=== PATIENT | male | born 1950 | race Caucasian/White ===

== ENCOUNTER → 2016-12-27 | Outpatient (CLI) | payer MEDICARE, OTHER ==
--- NOTE | 2016-12-27 20:10 | PN ---
This patient has obstructive sleep apnea, moderately severe, currently on a CPAP pressure of 9 cm of water. He is coming in for his yearly check. He is doing well. He would like to get an alternative nasal pillow for comfort reasons. His treatment has been successful. He is averaging around 7.2 hours of CPAP use per night. CPAP use for more than 4 hours in 27 out of 30. His AHI is down to 1.7. Leak factor is only 13 L/minute. He is known to have CAD, viral cardiomyopathy, hyperlipidemia, BPH and chronic neck pain. He is also known to have environmental allergies. He is still benefiting from CPAP treatment. He is sleeping an adequate number of hours. No major hypersomnia and sleepiness during the day. Lake score is 8. BP is 98/69, pulse 63, respiration 16, temperature 97.8, saturation 97% on room air. Weight is 148 and height is 64 inches. Lake score is 8. BMI is 25.1. GENERAL APPEARANCE: Calm, comfortable. HEENT: Crowding of posterior pharynx. No goiter or neck mass. LUNGS: Clear to auscultation. HEART: Sounds are regular rate and rhythm. Normal S1, S2. No S3. S4. No murmurs. ABDOMEN: Soft, nontender. No organomegaly. EXTREMITIES: No edema. No cyanosis or clubbing. IMPRESSION: 1. Obstructive sleep apnea, moderately severe, currently on a CPAP pressure of 9 cm of water. Based apnea-hypopnea index is 21. 2. Coronary artery disease. 3. History of viral cardiomyopathy. 4. Hyperlipidemia. 5. Benign prostatic hypertrophy. 6. Neck pain. 7. Nasal fracture. 8. Environmental allergies. PLAN: 1. Continue CPAP therapy at the same level of pressure. 2. Provide the patient AirFit P10 medium-sized nasal pillows. 3. Encourage implementing good sleep hygiene measures. 4. Treatment has been successful. We will continue to follow and make further recommendations based on his progress.
== END | disposition home or self-care (01) ==
LOC: SLEEP 13:45
PROVIDERS: ATTEND Internal Medicine Critical Care Medicine
DX: G47.33 Obstructive sleep apnea (adult) (pediatric) (principal)

== ENCOUNTER → 2017-06-19 | Outpatient (CLI) | payer MEDICARE, OTHER ==
--- NOTE | 2017-06-19 23:07 | MR ---
EXAMINATION TYPE: MR lumbar spine wo con DATE OF EXAM: 06/19/2017 COMPARISON: NONE HISTORY: LBP, rt hip pain TECHNIQUE: Multiplanar, multisequence images of the lumbar spine were acquired. Lumbar vertebra have normal alignment. Disc spaces are fairly well-maintained for the patient's age. There is no compression fracture. There is patchy mixed signal in the lumbar vertebral bodies consist ent with variable fatty marrow replacement. The lumbar nerve roots appear normal. There is no spinal stenosis. The neural foramina are fairly well-maintained. There is no paraspinal mass. I see no focal bone destruction. Sacroiliac joints are intact. IMPRESSION: Lumbar spine appears normal for age. No evidence of lumbar disc herniation or spinal stenosis. No fra cture.
== END | disposition home or self-care (01) ==
LOC: RADMRIMAIN 19:54
PROVIDERS: ATTEND Pain Medicine Interventional Pain Medicine
DX: M54.31 Sciatica, right side (principal); M51.26 Other intervertebral disc displacement, lumbar region
CPT/HCPCS: 72148

== ENCOUNTER 2018-04-17 08:25 | Day surgery (SDC) | payer MEDICARE, OTHER ==
[2018-04-09 09:41] VITALS: BMI 24.2
[~2018-04-17 08:25] MED LIST: DEXAMETHASONE SOD PHOSPHATE 10 MG/ML 1 ML VIAL IV ONE; HEPARIN SODIUM,PORCINE 5,000 UNIT/ML 1 ML VIAL SQ ONE; LACTATED RINGERS 1,000 ML IV SCH; LIDOCAINE 1% 20 ML VIAL (10MG/ML) FOR IV START INTRADERMA PRN; MIDAZOLAM 2 MG/2 ML VIAL IV PRN; ONDANSETRON 4 MG/2 ML VIAL IVP ONE; ceFAZolin IN SWFI 2 GM/20 ML SYRINGE IVP ONE; fentaNYL (PF) 50 MCG/ML 2 ML AMP IV PRN
[2018-04-17 08:56] LABS: Glucose,Whole Blood 112 mg/dL (75-99)
--- NOTE | 2018-04-17 09:35 | P.GSHP ---
History of Present Illness H&P Date: 04/17/18 Chief Complaint: Left inguinal hernia This is a 67-year-old male referred from Dr. Crain. Patient does today for laparoscopic robotic-assisted repair of left inguinal hernia. Patient was seen [facility] found have a left we will hernia. Patient's complaints of some right groin pain. He's had a previous right groin hernia. Past Medical History Past Medical History: GERD/Reflux, Hyperlipidemia, Hypertension, Myocardial Infarction ([place]), Prostate Disorder, Sleep Apnea/CPAP/BIPAP Additional Past Medical History / Comment(s): gout, seasonal allergies, has cpap , occasional irregular heart rate, hx cardiomyopathy, hypoglycemia Last Myocardial Infarction Date:: 2002 History of Any Multi-Drug Resistant Organisms: None Reported Past Surgical History: Heart Catheterization With Stent, Hernia Repair, Orthopedic Surgery Additional Past Surgical History / Comment(s): heart cath with 2 stents 2002, rt shoulder x2, lt shoulder x1, rt knee x3 meniscus,tendon, cartilage, lt knee surgery x1, greg catatact surgery with lens implants Past Anesthesia/Blood Transfusion Reactions: No Reported Reaction Date of Last Stent Placement:: 2002 Smoking Status: Former smoker - Past Family History Mother Family Medical History: No Reported History Medications and Allergies Home Medications Medication Instructions Recorded Confirmed Type ALPRAZolam [Xanax] 0.5 mg PO TID PRN 12/19/15 04/17/18 History Atorvastatin Calcium [Lipitor] 20 mg PO DAILY 12/19/15 04/17/18 History Cetirizine HCl [Zyrtec] 10 mg PO DAILY 12/19/15 04/17/18 History Citalopram Hydrobromide [CeleXA] 40 mg PO DAILY 12/19/15 04/17/18 History Finasteride [Proscar] 5 mg PO DAILY 12/19/15 04/17/18 History Indomethacin [Indocin] 50 mg PO TID PRN 12/19/15 04/17/18 History Metoprolol Tartrate [Lopressor] 50 mg PO BID 12/19/15 04/17/18 History Multivitamin [Men's Multi-Vitamin] 1 each PO DAILY 12/19/15 04/17/18 History Nitroglycerin Sl Tabs [Nitrostat] 0.4 mg SUBLINGUAL Q5M PRN 12/19/15 04/17/18 History [place]-3 Fatty Acids/Fish Oil [Fish 1 each PO BID 12/19/15 04/17/18 History Oil 1,000 mg Softgel] Pantoprazole Sodium [Protonix] 40 mg PO DAILY 12/19/15 04/17/18 History Polyethylene Glycol 3350 [Miralax] 17 gm PO BID 12/19/15 04/17/18 History Terazosin HCl [Hytrin] 10 mg PO HS 12/19/15 04/17/18 History Vitamin B Complex 1 each PO DAILY 12/19/15 04/17/18 History Ascorbic Acid [Vitamin C] 1,000 mg PO DAILY 04/09/18 04/17/18 History Aspirin EC [Ecotrin] 325 mg PO DAILY 04/09/18 04/17/18 History Cholecalciferol [Vitamin D3] 400 unit PO DAILY 04/09/18 04/17/18 History Ibuprofen [Motrin] 400 mg PO Q6HR PRN 04/09/18 04/17/18 History Vitamin E (Dl,Tocopheryl Acet) 400 unit PO DAILY 04/09/18 04/17/18 History [Vitamin E] Allergies Allergy/AdvReac Type Severity Reaction Status Date / Time No Known Allergies Allergy Verified 04/17/18 08:44 Surgical - Exam Vital Signs Temp Pulse Resp BP Pulse Ox 98.4 F 68 16 102/59 96 04/17/18 09:02 04/17/18 09:02 04/17/18 09:02 04/17/18 09:02 04/17/18 09:02 - General well developed, no distress - Eyes PERRL - ENT normal pinna - Neck no masses - Respiratory normal expansion - Cardiovascular Rhythm: regular - Abdomen Abdomen: soft, non tender Hernia: inguinal (Left inguinal hernia) Results - Labs Abnormal Lab Results - Last 24 Hours (Table) 04/17/18 Range/Units 08:52 POC Glucose (mg/dL) 112 H (75-99) mg/dL Assessment and Plan Assessment: Left inguinal hernia. We'll perform laparoscopic robotic-assisted repair.
--- NOTE | 2018-04-17 09:44 | P.ONQ ---
Anesthesiology Proc Note - PNB - Peripheral Nerve Block Performed Bilateral Transversus Abdominis Single Procedure Start Time: :10 Procedure Stop Time: :20 Indication: Acute Post-Operative Pain, Requested by physician Sedation Type: Sedate with meaningful contact maintained Preparation: Sterile Prep Position: Supine Needle Size: 50mm (2") Needle Gauge: 21 Injectate: 0.5% Ropivacaine (see comment for volume) (Bilateral infiltration with 15ml 0.5 % Ropivicaine) Blood Aspirated: No Pain Paresthesia on Injection Noted: No Resistance on Injection: Normal Events: Uneventful and Well Tolerated
[2018-04-17] MEDS ORDERED: PROPOFOL 10 MG/ML 20 ML VIAL IV ONE (09:57)
[2018-04-17] MEDS ORDERED: fentaNYL (PF) 50 MCG/ML 2 ML AMP ONE (09:57)
[2018-04-17] MEDS ORDERED: ROCURONIUM BROMIDE 10 MG/ML 10 ML VIAL IV ONE (09:57)
[2018-04-17] MEDS ORDERED: MIDAZOLAM 2 MG/2 ML VIAL ONE (09:57)
[2018-04-17] MEDS ORDERED: NEOSTIGMINE 1 MG/ML 10 ML VIAL ONE (09:57)
[2018-04-17] MEDS ORDERED: GLYCOPYRROLATE 0.2 MG/ML 2 ML VIAL ONE (09:57)
[2018-04-17] MEDS ORDERED: SUCCINYLCHOLINE CHLORIDE 100 MG/5 ML SYR IV ONE (09:57)
[2018-04-17] MEDS ORDERED: ROPIVACAINE 5 MG/ML 30 ML VIAL ONE (09:57)
[2018-04-17] MEDS ORDERED: LIDOCAINE 1% INJ 10MG/ML (20 ML MDV) ONE (09:57)
[2018-04-17] MEDS ORDERED: BUPIVACAIN-EPI 0.5%-1:200,000 30 ML VIAL SQ ONE (10:20)
[2018-04-17 11:36] VITALS: TEMP 97.8
[2018-04-17] MEDS ORDERED: KETOROLAC 30 MG/ML 1 ML VIAL IVP ONE (11:41)
[2018-04-17] MEDS ORDERED: LACTATED RINGERS 1,000 ML IV ONE (11:53)
[2018-04-17 12:02] VITALS: RESP 16
--- NOTE | 2018-04-17 12:22 | P.OP ---
Date of Procedure: 04/17/18 Preoperative Diagnosis: Left inguinal hernia Postoperative Diagnosis: Left inguinal hernia Adhesions Procedure(s) Performed: Laparoscopic robotic system repair of left inguinal hernia Adhesions Anesthesia: GABBY Surgeon: Quintin Desai Estimated Blood Loss (ml): 5 Pathology: none sent Condition: stable Disposition: PACU Description of Procedure: MThe patient's placed on the operating table in the supine position. The patient received general anesthesia. The patient's abdomen was prepped and draped in usual sterile fashion. The skin was anesthetized 1% local Xylocaine at the incision sites. Using an 11 blade a skin incision was made at the umbilicus. The fascia was grasped with a [place] and then the peritoneal cavity was entered with the Veress needle. Position of the Veress needle was confirmed with a positive drop test. After adequate insufflation a 5 mm trocar was placed into the peritoneal cavity. The Laparoscope was placed the peritoneal cavity. And a robotic 8 mm trocar was placed in the right lateral position and then another 8 mm robotic trochars placed in the left lateral position. The original 5 mm trocar was exchanged for a 12 mm trocar. The patient was placed in reverse Trendelenburg and then the patient was docked to the robot. Next the peritoneum over top of the left hernia was incised and then using blunt and sharp dissection and electrocautery the hernia sac was dissected free from the floor of the inguinal canal. The hernia sac was completely reduced into the peritoneal cavity. And then using the Pro hoeing row boss mesh the hernia was repaired. The peritoneum was then sutured with 20V lock suture. Next the right inguinal areas examined. There is evidence of. Repair. Mesh could be seen in the peritoneum. There were adhesions to the mesh. These were lysed using sharp dissection. There is no evidence of a recurrent hernia. The patient was then undocked the robot. The needle was withdrawn from the peritoneal cavity. The umbilical trocar site was closed with 0 Ethibond suture. The skin was closed interrupted 3-0 Monocryl suture. Dermabond dressing was applied. Patient was sent to recovery in stable condition.
[2018-04-17] MEDS ORDERED: HYDROcodone/APAP 7.5-325MG 1 EACH TAB PO ONE (12:33)
[2018-04-17 12:36] VITALS: BP 113/71; PULSE 57
== END 2018-04-17 13:53 | disposition home or self-care (01) ==
LOC: OR 08:25
PROVIDERS: ATTEND Surgery
DX: K40.90 Unilateral inguinal hernia, without obstruction or gangrene, not specified as recurrent (principal); K21.9 Gastro-esophageal reflux disease without esophagitis; E78.5 Hyperlipidemia, unspecified; I25.2 Old myocardial infarction; N40.0 Benign prostatic hyperplasia without lower urinary tract symptoms; G47.30 Sleep apnea, unspecified; Z99.89 Dependence on other enabling machines and devices; I42.9 Cardiomyopathy, unspecified; Z95.5 Presence of coronary angioplasty implant and graft; Z87.891 Personal history of nicotine dependence; F32.9 Major depressive disorder, single episode, unspecified; F41.9 Anxiety disorder, unspecified; Z79.82 Long term (current) use of aspirin; Z79.899 Other long term (current) drug therapy
CPT/HCPCS: 49650; 64488; C1781; J2250; J1644; J1100; J2710; J2405; J2001; J3010; J1885; J2795; J0330; J2704; J0690

== ENCOUNTER → 2018-05-29 | Outpatient (CLI) | payer MEDICARE, OTHER ==
--- NOTE | 2018-05-29 16:22 | PN ---
PROGRESS NOTE This is a pleasant 67-year-old male patient coming in for followup regarding his CARYN. This is his annual check. This patient was diagnosed having obstructive sleep apnea. He is currently on CPAP at a pressure of 9 cm of water. Recently he has undergone left inguinal hernia repair and cataract surgery. Despite all these surgical procedures, he has been very compliant with his CPAP unit. Compliance over the past 30 days shows an average CPAP use of 6.9 hours per night. His CPAP use for more than 4 hours is 100%. Leak factor is 31 L/minute. His AHI while on treatment is down to 1.4. He is using AirFit P10 nose pillows. No aerophagia. No belching. No flatus. No nocturnal heartburn or chest pain or shortness of breath. He wakes up refreshed and alert during the day. No hypersomnia or sleepiness at all, and his [place] score is 5. 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 No other medical issues otherwise over the past one year. REVIEW OF SYSTEMS: Twelve-point review of systems was done. Positive findings were all mentioned above in the history of present illness. No weight loss or weight gain. No angina. No palpitations. No shortness of breath. No cough or sputum production. No nausea, vomiting. No altered mentation. No anxiety. No depression. No swelling in lower extremities. No open wounds or sores or ulceration. PHYSICAL EXAMINATION: BP is 115/71, pulse 66, respiration 16, temperature 97.2, saturation 98% on room air. Height 5 feet 4 inches, weight 150, neck size 15-2/3 inches. E[place] score is 5 and BMI is 25.3. GENERAL APPEARANCE: Calm comfortable. Head is atraumatic, normocephalic. NECK: Supple. There is no JVD. No goiter or neck masses. Mallampati class IV. LUNGS: Clear to auscultation. HEART: Heart sounds are regular rate and rhythm. Normal S1, S2. No S3, S4. No murmurs. ABDOMEN: Soft, nontender. No organomegaly. EXTREMITIES: No edema. No cyanosis or clubbing. NEUROLOGIC: Alert and oriented x3. No focal neurological deficit. IMPRESSION: 1. Obstructive sleep apnea. The patient continues to receive successful CPAP therapy at a pressure of 9 cm of water. He continues to benefit and the compliancy data shows satisfactory use. 2. Hypersomnia, recovered. E[place]ka score is down to 5. 3. Recent hernia surgery. 4. Recent cataract surgery. 5. Stable weight. PLAN: 1. Continue CPAP at the same level of pressure. 2. Refills for his supplies were given. 3. No need for any pressure adjustments. 4. See me back in a year's time, earlier if needed. MMODL / IJN: [id number] /
== END | disposition home or self-care (01) ==
LOC: SLEEP 15:11
PROVIDERS: ATTEND Internal Medicine Critical Care Medicine
DX: G47.33 Obstructive sleep apnea (adult) (pediatric) (principal); Z99.89 Dependence on other enabling machines and devices; Z98.890 Other specified postprocedural states; Z98.49 Cataract extraction status, unspecified eye

== ENCOUNTER → 2019-05-28 | Outpatient (CLI) | payer MEDICARE, OTHER ==
--- NOTE | 2019-05-28 16:38 | PN ---
PROGRESS NOTE This 68-year-old male patient coming in for annual check regarding obstructive sleep apnea. The patient is doing well. He has an AHI of 21, currently on CPAP pressure of 9 cm of water. He is using AirFit P10 nose pillow. His average is around 7 hours of CPAP use per night and his AHI is down to 0.5. CPAP use for more than 4 hours is above 80%. He has no new complaints. He is seeking the same mask to be renewed. He is using a heated tubing. His temperature of tubing set at 66 degrees and humidity level is at 4. Blood pressure is under good control. No nocturnal chest pain. No shortness of breath. Heart burn. No altered mentation during the day. The patient is successfully treated. 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 He does not fall asleep during day-to-day activities and his current [place]bridge score is down to 4. REVIEW OF SYSTEMS: Fourteen-point review of system was done. Positive findings are mentioned above history of present illness. No recent weight gain or weight loss. Treatment remains extremely successful. No snoring. No restlessness in lower extremities. No leg edema. No altered mentation. No falls. No anxiety or depression. PHYSICAL EXAMINATION: VITAL SIGNS: BP is 103/64, pulse is 64, respirations 16, temperature 98.0. Saturation 96% on room air. Weight is 152 and BMI 26. GENERAL: Calm, comfortable. Head is atraumatic, normocephalic. NECK: Supple. No JVD. No goiter or neck masses. LUNGS: Clear to auscultation. HEART: Heart sounds are regular rate and rhythm. Normal S1, S2. No S3. No murmurs. ABDOMEN: Soft, nontender. No organomegaly. EXTREMITIES: No edema. No cyanosis or clubbing. NEUROLOGIC: She is awake, alert, and there are no focal neurological deficits. PSYCHIATRIC: Negative for anxiety or depression. IMPRESSION: 1. Obstructive sleep apnea moderate in severity. AHI of 21, still on CPAP pressure of 9 cm of water. 2. Hypersomnia, recovered. PLAN: 1. Continue CPAP at same level of pressure which is 9 cm. 2. Refill AirFit P10 medium-size nose pillows. 3. Keep the humidity at 4. 4. Drop the temperature of the tubing upon his request to 6 degrees Fahrenheit. 5. Encourage maintaining good sleep hygiene measures. Northbridge score is 7. His treatment is successful. He will see me back in a year's time, earlier if needed. Refills on his equipment and supplies were given. MMRAHELL / IJN: [id number] /
== END ==
LOC: SLEEP 14:37
PROVIDERS: ATTEND Internal Medicine Critical Care Medicine
DX: G47.33 Obstructive sleep apnea (adult) (pediatric) (principal); Z99.89 Dependence on other enabling machines and devices

== ENCOUNTER → 2020-05-09 | Outpatient (CLI) | payer MEDICARE, OTHER ==
--- NOTE | 2020-05-10 01:18 | MR ---
EXAMINATION TYPE: MR lumbar spine wo con DATE OF EXAM: 05/09/2020 COMPARISON: 01/31/2017 HISTORY: Low back pain into rt leg CONTRAST: 0 mL intravenous Gadavist. TECHNIQUE: Multiplanar, multisequence images of the lumbar spine were acquired. FINDINGS: Cord terminates at the L1 level. Diffuse heterogeneity within the vertebral bodies similar to prior exam likely related to red marrow conversion. Disc heights are preserved. Vertebral body he ights are preserved. Diffuse disc desiccation is present throughout the lumbar spine is stable from c omparison. L5-S1: Minimal disc bulging is anterior thecal sac contact. No spinal canal stenosis. No foraminal stenosis. Facets are normal. L4-L5: Minimal disc bulging is anterior thecal sac contact. No spinal canal stenosis. No foraminal stenosis. Mild facet hypertrophy and ligamentum flavum laxity has posterior lateral thecal sac conta ct. No stenosis is evident.. L3-L4: No significant disc bulge or disc herniation. No spinal canal stenosis. No foraminal stenosi s. L2-L3: No significant disc bulge or disc herniation. No spinal canal stenosis. No foraminal stenosi s. L1-L2: No significant disc bulge or disc herniation. No spinal canal stenosis. No foraminal stenosi s. T12-L1: No significant disc bulge or disc herniation. No spinal canal stenosis. No foraminal stenos is. IMPRESSION: 1. Minimal disc bulging with anterior thecal sac contact, No stenosis is present L4-5 L5-S1. 2. Minimal facet hypertrophy L4-5. 3. No significant interval change
== END | disposition home or self-care (01) ==
LOC: RADMRIMAIN 11:50
PROVIDERS: ATTEND Neuromusculoskeletal Medicine & OMM
DX: M51.86 Other intervertebral disc disorders, lumbar region (principal); M54.16 Radiculopathy, lumbar region
CPT/HCPCS: 72148

== ENCOUNTER 2020-07-07 05:56 | Day surgery (SDC) | payer MEDICARE, OTHER ==
[2020-07-02 12:00] VITALS: BMI 25.9
[2020-07-07] MEDS ORDERED: NITROGLYCERIN SL TABS 0.4 MG TAB SUBLINGUAL PRN (06:04)
[2020-07-07] MEDS ORDERED: ALPRAZolam 0.25 MG TAB PO PRN (06:04)
[2020-07-07] MEDS ORDERED: SODIUM CHLORIDE 0.9% 1,000 ML in EMPTY BAG 1 BAG IV ONE (06:04)
[2020-07-07] MEDS ORDERED: ALPRAZolam 0.5 MG TAB PO PRN (06:04)
[2020-07-07] MEDS ORDERED: ASPIRIN 325 MG TAB PO STA (06:04)
[2020-07-07] MEDS ORDERED: SODIUM CHLORIDE 0.9% 1,000 ML IV ONE (06:13)
[2020-07-07 06:31] VITALS: RESP 16; TEMP 98.3
[2020-07-07] MEDS ORDERED: fentaNYL (PF) 50 MCG/ML 2 ML AMP ONE (07:03)
[2020-07-07] MEDS ORDERED: LIDOCAINE 1% INJ 10MG/ML (20 ML MDV) ONE (07:18)
[2020-07-07] MEDS ORDERED: BENZOCAINE SPRAY 1 CAN MUCOUS MEM ONE (07:20)
[2020-07-07] MEDS ORDERED: fentaNYL (PF) 50 MCG/ML 2 ML AMP IV ONE (07:20)
[2020-07-07] MEDS ORDERED: MIDAZOLAM 2 MG/2 ML VIAL IV ONE ×2 (07:20→07:56)
[2020-07-07] MEDS ORDERED: VERAPAMIL 2.5 MG/ML 2 ML AMP ONE (07:45)
[2020-07-07] MEDS ORDERED: IV FLUID CONTINUATION 1,000 ML IV ONE (07:45)
[2020-07-07] MEDS ORDERED: LIDOCAINE 1% INJ 10MG/ML (20 ML MDV) SQ ONE (07:56)
[2020-07-07] MEDS ORDERED: VERAPAMIL SYRINGE (5 MG/10 ML) INTRAARTER ONE (08:04)
[2020-07-07] MEDS ORDERED: HEPARIN SODIUM 1,000 UN/ML (10ML VL) IV ONE ×2 (08:20→08:25)
[2020-07-07 08:29] LABS: O2 Sat Blood Gas 68.8 %
[2020-07-07 08:33] LABS: O2 Sat Blood Gas 97.5 %
[2020-07-07] MEDS ORDERED: IOPAMIDOL-370 50ML BTL INJ ONE (08:36)
[2020-07-07] MEDS ORDERED: NITROGLYCERIN 1000MCG/10ML SYRINGE INTRACORON ONE ×2 (08:38→08:49)
[2020-07-07] MEDS ORDERED: ADENOSINE 90 MG in SODIUM CHLORIDE 0.9% 60 ML IVP ONE (08:52)
[2020-07-07] MEDS ORDERED: IOPAMIDOL-370 125ML BTL INJ ONE (08:53)
[2020-07-07] MEDS ORDERED: RX INFO: IV CONTRAST WAS GIVEN 1 EACH MISC MISCELLANE PRN (09:08)
[2020-07-07] MEDS ORDERED: SODIUM CHLORIDE 0.9% 1,000 ML IV SCH (09:15)
--- NOTE | 2020-07-07 09:18 | ECHOT ---
TRANSESOPHAGEAL ECHOCARDIOGRAM INDICATION: Evaluation of mitral valve. PROCEDURE: After explaining the procedure to the patient, its risks and complications, his blood pressure, heart rate, O2 saturation was monitored. The throat was sprayed with Cetacaine, he received 2 mg intravenous Versed, 50 mcg intravenous fentanyl. The probe was introduced in the esophagus without difficulties. Images were obtained. The probe was removed, there was no immediate complication. FINDINGS: Left atrial size is dilated. Left atrial appendage is normal. Left ventricular size is normal. The inferolateral wall is hypokinetic. The estimated ejection fraction 45%. The aortic valve revealed mild thickening of the mitral valve leaflets with preserved opening, mitral valve revealed mild thickening of the leaflets. The tricuspid valve is normal. Descending thoracic aorta appears to be normal. Contrast bubble study revealed no shunting across the interatrial septum. There was no pericardial effusion. Doppler pulse wave and color Doppler obtained and revealed a moderate central mitral regurgitation with mild to moderate aortic and mild tricuspid regurgitation. There was no shunting by color Doppler study. CONCLUSION: 1. Dilated left atrium. 2. Normal left ventricular size with mildly impaired left ventricular systolic function with segmental wall motion abnormality. 3. Moderate central mitral regurgitation with mild to moderate aortic and mild tricuspid regurgitation. 4. No shunting across the interatrial septum. 5. Normal appearance of the descending thoracic aorta. MMODL / IJN: [id number] /
--- NOTE | 2020-07-07 10:02 | CC ---
CARDIAC CATHETERIZATION REPORT Mr. Zarate is a 69-year-old male with known history of coronary artery disease, status post myocardial infarction and stenting of the left circumflex in 2002, who presented with symptoms of progressive dyspnea and evidence of mitral regurgitation. In view of that, recommendation made regarding cardiac catheterization. The procedures, risks, and complication were discussed with the patient who is in full understanding and agreement. PROCEDURE: Patient was brought to the slab installer in a fasting semi-sedated state after receiving fentanyl and Benadryl and achieving moderate conscious sedated state. Using Xylocaine anesthesia and Seldinger technique, a 6-Nepalese sheath was introduced in the right radial artery. Subsequently, using guidewire exchange, the intravenous catheter in the right basilic vein was exchanged to a 6-Nepalese sheath, right heart catheterization was performed using Beaman-Aspen catheter, multiple pressure and samples were obtained. Following that, selective right and left coronary angiography performed using 5-Nepalese, 3.5 bend, right and left Catina catheter, multiple views of the coronary artery including hemiaxial views obtained. Following that, a 5-Nepalese tight pigtail catheter introduced into the left ventricle and a 30-degree STEVENS view of the left ventricle was obtained. Following that, catheters were removed and a 6-Nepalese FL 3.5 guiding catheter was introduced in the system and after cannulating the left main, a Exhbito Verrata plus pressure guidewire was introduced in the left circumflex and IFR and FFR were measured after infusion of adenosine per protocol. Following that, catheter and sheath were removed. Hemostasis was obtained with deployment of a TR band. There was no immediate complication. Patient is returned to his room in stable condition. Of note, the patient received a total of 5500 units of intravenous heparin during the procedure intra-arterial verapamil. HEMODYNAMICS: Right atrial saturation 72% pulmonary saturation 69%. Radial artery saturation 97%. Cardiac output by Mariama 5.6 L/minute and by thermodilution 6.8 L/minute. Pulmonary artery systolic pressure of 24 with a diastolic of 12. Pulmonary capillary wedge pressure A-wave of 10, V-wave of 8 with a mean of 8 mmHg. Right ventricular systolic pressure of 24 with an end-diastolic of 3 mmHg. Right atrial A-wave of 2, V-wave of 2 with a mean of 2 mmHg. There was no gradient across the aortic valve. The left ventricular end-diastolic pressure was 20 mmHg. CORONARIES: Under fluoroscopy there was calcification involving the right coronary artery and the left anterior descending artery. LEFT MAIN: This is a short size vessel, bifurcating into left circumflex. Left main coronary artery has no evidence of high-grade stenosis. LEFT ANTERIOR DESCENDING ARTERY: This is a large-sized vessel, reaching toward the apex with a wraparound apex segment giving rise to 3 small diagonal branch. Left anterior descending artery has mild intimal disease of 20%-30%in the mid segment without any evidence of high-grade stenosis. LEFT CIRCUMFLEX: This is a nondominant vessel, giving rise to a large obtuse marginal branch. The stented segment is patent. Following the stent, there is an area of 50% to 60% eccentric lesion, the rest of the vessel has no high-grade stenosis. RIGHT CORONARY ARTERY: This is a dominant vessel, large in caliber, bifurcating distally into PDA and posterolateral segment and branches, calcified in the mid segment. The right coronary artery has mild intimal disease of 20% to 30% without any evidence of high-grade stenosis. LEFT VENTRICULOGRAM: Left ventriculogram was performed in 30 degree STEVENS view and revealed an inferoapical hypokinesis and 2+ mitral regurgitation. FRACTION FLOW RESERVE: Fraction flow reserve was 97% and IFR was 1.0. IMPRESSION: 1. Calcified coronary arteries. 2. Patent stent in the left circumflex with moderate lesion distal to the stent. 3. Normal IFR and FFR of the left circumflex. 4. Mildly to moderately impaired left ventricular systolic function with 2+ mitral regurgitation. RECOMMENDATION: In view of the finding and anatomy, I recommend continue medical therapy with aggressive risk modifications being initiated. Those findings and recommendation were discussed with the patient and his family and they are in full understanding and agreement. Duration of sedation is 59 minutes. MMODL / IJN: [id number] /
[2020-07-07 12:24] VITALS: BP 118/69; PULSE 66
[2020-07-07] MEDS ORDERED: lisinopriL 5 MG TAB PO SCH (21:00)
[2020-07-07] MEDS ORDERED: METOPROLOL TARTRATE 50 MG TAB PO SCH (21:00)
[2020-07-07] MEDS ORDERED: ASPIRIN 81 MG PO SCH (21:00)
[2020-07-07] MEDS ORDERED: ATORVASTATIN 40 MG TAB PO SCH (21:00)
== END 2020-07-07 12:57 | disposition home or self-care (01) ==
LOC: CATHCVL 05:56
PROVIDERS: ATTEND Internal Medicine Interventional Cardiology
DX: I25.10 Atherosclerotic heart disease of native coronary artery without angina pectoris (principal); I25.2 Old myocardial infarction; I08.3 Combined rheumatic disorders of mitral, aortic and tricuspid valves; I10 Essential (primary) hypertension; I25.5 Ischemic cardiomyopathy; E78.2 Mixed hyperlipidemia; G47.33 Obstructive sleep apnea (adult) (pediatric); I49.3 Ventricular premature depolarization; Z95.5 Presence of coronary angioplasty implant and graft; Z79.899 Other long term (current) drug therapy; Z79.02 Long term (current) use of antithrombotics/antiplatelets; Z79.82 Long term (current) use of aspirin; Z82.49 Family history of ischemic heart disease and other diseases of the circulatory system; M19.90 Unspecified osteoarthritis, unspecified site; Z98.49 Cataract extraction status, unspecified eye; Z87.891 Personal history of nicotine dependence
CPT/HCPCS: 93312; 93325; 93571; 93460; 85347; 85018; 82810; C1887; C1751; C1769; C1894; J2250; J2001; J3010; J1644; J0153; Q9967 ×2; 93453

== ENCOUNTER → 2020-07-14 | Outpatient (CLI) | payer MEDICARE, OTHER | END | disposition home or self-care (01) | LOC: LABWHC1 16:01 | PROVIDERS: ATTEND Family Medicine | DX: Z20.828 Contact with and (suspected) exposure to other viral communicable diseases (principal) | CPT/HCPCS: U0003; C9803 ==

== ENCOUNTER → 2021-06-03 | Outpatient (CLI) | payer MEDICARE, OTHER ==
--- NOTE | 2021-06-08 21:54 | SLS ---
SLEEP STUDY HOME SLEEP STUDY: DATE OF SERVICE: 06/04/2021. This is a 70-year-old patient with obstructive sleep apnea. The patient's AHI was 21, worse during REM sleep. The patient was being treated with a CPAP pressure of 11 cm of water. He was receiving successful treatment. His machine went bad and he contacted his DME and he was unable to obtain a new machine, and the machine could not be repaired. The DME dropped the pressure down to 7 cm of water. Even with that, the patient is having difficulties tolerating and his treatment is suboptimal at this point in time. A home sleep study was ordered, and following that the patient will be given a newer-generation ResMed AutoSet unit. PERTINENT PHYSICAL FINDINGS: Height is 5 feet 5 inches. Weight is 156, BMI 25.9. TECHNICAL DESCRIPTION: The ResMed ApneaLink was used to complete this type 3 home sleep study. The total recording duration was 9 hours and 57 minutes. Recording started at 9:51 p.m., ended at 7:48 a.m. The study was adequate, knowing that there was a total of 9 hours and 45 minutes of flow monitoring and had a total of 9 hours and 46 minutes of oxygen saturation monitoring. RESULTS: Respiratory count showed a total of 4 obstructive apneas, zero mixed apneas, zero central apneas, 98 obstructive hypopneas. AHI was 10.5. OXYGENATION ANALYSIS: The patient had a total of 93 oxygen desaturations where the pulse ox dropped by more than 4%. Minimum pulse ox was 82% and the patient spent approximately 8 minutes of sleep time at a pulse ox of 88% or below, accounting for around 1% of the overall sleep time. CARDIAC SUMMARY: Average heart rate was 69, minimum heart rate 51, maximum was 84. IMPRESSION: 1. Obstructive sleep apnea, mild. AHI of 10. 2. Congestive heart failure. 3. Coronary artery disease. 4. 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 Patient on Eliquis. 5. Hypertension. 6. Hyperlipidemia. 7. Benign prostatic hypertrophy. PLAN: 1. Order an APAP in for this patient at a pressure minimum of 5 and a maximum of 15 with appropriate mask interface. 2. See me back in the office in 30 to 90 days to assess clinical response and compliance, and further adjustments will be done on his treatment accordingly. Will monitor the compliance data and make further recommendations. MMODL / IJN: [id number] /
== END ==
LOC: SLEEP 16:17
PROVIDERS: ATTEND Internal Medicine Critical Care Medicine
DX: G47.33 Obstructive sleep apnea (adult) (pediatric) (principal); I50.9 Heart failure, unspecified; I25.10 Atherosclerotic heart disease of native coronary artery without angina pectoris; I10 Essential (primary) hypertension; E78.5 Hyperlipidemia, unspecified; N40.0 Benign prostatic hyperplasia without lower urinary tract symptoms; Z79.01 Long term (current) use of anticoagulants; Z99.89 Dependence on other enabling machines and devices; Z86.718 Personal history of other venous thrombosis and embolism; Z87.891 Personal history of nicotine dependence

== ENCOUNTER → 2022-06-15 | Outpatient (CLI) | payer MEDICARE, OTHER ==
--- NOTE | 2022-06-15 12:26 | XR ---
EXAMINATION TYPE: XR chest 2V DATE OF EXAM: 06/15/2022 COMPARISON: NONE HISTORY: Coughing and shortness of breath. TECHNIQUE: Frontal and lateral views of the chest are obtained. FINDINGS: Perhaps mild underlying emphysematous change present on the lateral view. Some eventration of the right hemidiaphragm. There is no suspicious focal air space opacity, pleural effusion, or pne umothorax seen. The cardiac silhouette size is within normal limits. The osseous structures are in tact. IMPRESSION: No acute process.
== END | disposition home or self-care (01) ==
LOC: RADXRMAIN 12:07
PROVIDERS: ATTEND Family Medicine
DX: R05.2 Subacute cough (principal); R06.02 Shortness of breath
CPT/HCPCS: 71046

== ENCOUNTER → 2023-06-15 | Day surgery (SDC) | payer MEDICARE ==
[2023-06-13 17:02] VITALS: BMI 25.7
[~2023-06-15] MED LIST changes: +ALPRAZolam 0.25 MG TAB PO PRN; +ALPRAZolam 0.5 MG TAB PO PRN; +ASPIRIN 325 MG TAB PO STA; +ATORVASTATIN 40 MG TAB PO SCH; +ATORVASTATIN 80 MG TAB PO STA; -DEXAMETHASONE SOD PHOSPHATE 10 MG/ML 1 ML VIAL IV ONE; +HEPARIN SODIUM 1,000 UN/ML (10ML VL) IV ONE; +HEPARIN SODIUM 1,000 UN/ML (10ML VL) ONE; +HEPARIN SODIUM,PORCINE (1 ML) 2,500 UNIT in SODIUM CHLORIDE 0.9% 250 ML IRRIGATION PRN; +HEPARIN SODIUM,PORCINE 10,000 UNIT in SODIUM CHLORIDE 0.9% 1,000 ML IRRIGATION PRN; -HEPARIN SODIUM,PORCINE 5,000 UNIT/ML 1 ML VIAL SQ ONE; +IOPAMIDOL-370 100ML BTL INJ ONE; +IV FLUID CONTINUATION 500 ML IV ONE; -LACTATED RINGERS 1,000 ML IV SCH; -LIDOCAINE 1% 20 ML VIAL (10MG/ML) FOR IV START INTRADERMA PRN; +LIDOCAINE 1% INJ 10MG/ML (20 ML MDV) SQ ONE; +METOPROLOL TARTRATE 50 MG TAB PO SCH; -MIDAZOLAM 2 MG/2 ML VIAL IV PRN; +MIDAZOLAM 2 MG/2 ML VIAL IVP ONE; +NITROGLYCERIN SL TABS 0.4 MG TAB SUBLINGUAL PRN; +NON FORMULARY DRUG (Aspirin [Adult Low Dose Aspirin Ec] 81 MG Tablet.Dr) PO SCH; -ONDANSETRON 4 MG/2 ML VIAL IVP ONE; +RX INFO: IV CONTRAST WAS GIVEN 1 EACH MISC MISCELLANE PRN; +SODIUM CHLORIDE 0.9% 1,000 ML IV ONE; +SODIUM CHLORIDE 0.9% 1,000 ML IV SCH; +TAMSULOSIN 0.4 MG CAP.ER.24H PO SCH; +VERAPAMIL SYRINGE (5 MG/10 ML) INTRAARTER ONE; -ceFAZolin IN SWFI 2 GM/20 ML SYRINGE IVP ONE; -fentaNYL (PF) 50 MCG/ML 2 ML AMP IV PRN; +fentaNYL (PF) 50 MCG/ML 2 ML AMP IVP ONE; +fentaNYL (PF) 50 MCG/ML 2 ML AMP ONE; +lisinopriL 5 MG TAB PO SCH
[2023-06-15 08:20] LABS: Basophils % (A) 0 %; Eosinophils # (A) 0.3 k/uL (0-0.7); Eosinophils % (A) 4 %; HCT 39.9 % (39.0-53.0); HGB 13.3 gm/dL (13.0-17.5); Lymphocytes # (A) 1.4 k/uL (1.0-4.8); Lymphocytes % (A) 21 %; MCH 30.4 pg (25.0-35.0); MCHC 33.4 g/dL (31.0-37.0); Mean Platelet Volume 9.6; Monocytes # (A) 0.5 k/uL (0-1.0); Monocytes % (A) 8 %; Neutrophils # (A) 4.2 k/uL (1.3-7.7); Neutrophils % (A) 64 %; Platelet Count 175 k/uL (150-450); RBC 4.39 m/uL (4.30-5.90); WBC 6.6 k/uL (3.8-10.6)
[2023-06-15 08:27] VITALS: RESP 16; TEMP 97.5
[2023-06-15 08:32] LABS: African American GFR (CKD) >90 (>60 ml/min/1.73 sqM); Anion Gap 10 mmol/L; Blood Urea Nitrogen 23 mg/dL (9-20); Calcium 9.2 mg/dL (8.4-10.2); Carbon Dioxide 24 mmol/L (22-30); Chloride 103 mmol/L (98-107); Glucose 116 mg/dL (74-99); Non-African American GFR(CKD) >90 (>60 ml/min/1.73 sqM); Potassium 3.9 mmol/L (3.5-5.1); Sodium 137 mmol/L (137-145)
[2023-06-15] MEDS: BENZOCAINE SPRAY 1 CAN TOPICAL ONE ×2 (10:06→10:20)
--- NOTE | 2023-06-15 10:39 | P.PCN ---
Date of Procedure: 06/15/23 Description of Procedure: Indication: Mitral regurgitation Procedure Description: After explaining the procedure to the patient, it's risk and complications, blood pressure, heart rate and O2 saturation were monitored. The throat was sprayed with Cetacaine. Patient received 2 mg intravenous Versed, 50 mcg intravenous fentanyl. The probe was introduced into the esophagus without difficulty. Images were obtained. Following that, the probe was removed. There was no immediate complication. Findings: Left atrial size is dilated, left atrial appendage is normal. The inferior and inferoseptal wall are hypokinetic, ejection fraction 40-45%. The mitral valve revealed mild thickening of the leaflets, aortic valve is tricuspid with mild calcification of the cusps. The tricuspid valve is normal. Descending thoracic aorta appears to be normal. No pericardial effusion was noted. Contrast bubble study revealed no shunting across the intra-atrial septum with Valsalva maneuver. Doppler: Pulse wave and color Doppler were obtained, and revealed severe multiple jets mitral regurgitation, [id number] tricuspid regurgitation and mild aortic regurgitation. There was no shunting by color Doppler study. Conclusion: 1. Dilated left atrium 2. Moderately impaired left ventricular systolic function with segmental wall motion abnormality 3. Severe mitral regurgitation 4. Mild tricuspid regurgitation with mild aortic regurgitation 5. No shunting across the intra-atrial septum
[2023-06-15 11:16] LABS: O2 Sat Blood Gas 98.6 %
[2023-06-15 11:18] LABS: O2 Sat Blood Gas 72.9 %
--- NOTE | 2023-06-15 11:38 | P.CARDCATH ---
Date of Procedure: 06/15/23 Description of Procedure: Cardiac Catheterization: The patient is a 72-year-old male with a known history of hypertension, hyperlipidemia, history of CAD and mitral regurgitation who has been complaining of progressive fatigue and dyspnea on exertion. Recommendations were made regarding cardiac catheterization, the risks and the complications were discussed with the patient who is in full understanding and agreement. Procedure Description: Patient was brought to photographic laboratory technician in fasting semi-sedated state after receiving Fentanyl and Benadryl achieiving moderate conscious sedated state. Using Xylocaine Anesthesia and modified Seldinger technique, a 6-Ethiopian sheath was introduced in the right radial artery . The venous access in the right basilic vein was exchanged for a 6-Ethiopian sheath. Right heart catheterization was performed with [place] catheter, multiple samples and pressures were obtain. Cardiac output by thermodilution was calculated. Subsequently, selective coronary angiography was performed using a 5-Ethiopian 3.5 bend Catina catheter. Multiple views of the coronary artery including hemiaxial views were obtained. The 6-Ethiopian pigtail catheter was used to cross the aortic valve and LVEDP was calculated. An STEVENS view of the left ventricle was performed. Following that, catheter and sheath were removed. Hemostasis was obtained with deployment of vascular band and compression on the right venous site. There was no immediate complication. Patient was returned to room in stable condition. Of note, the patient received a total of 3500 units of intravenous heparin as well as intra-arterial verapamil. Findings: Fluoroscopy: Calcifications of the coronary arteries were noted Left main: This is a large size vessel, bifurcating into LAD and left circumflex, left main has no obstructive disease. LAD: This is a large size vessel, giving rise to small diagonal branch. The proximal LAD has 10-20% plaque. The mid LAD at the 40% plaque, the rest of the vessel is no high-grade stenosis Left circumflex: Is a nondominant vessel giving rise to a large obtuse marginal branch. The stented segment in the obtuse marginal branch is patent, distal to the stent there is an eccentric 50% plaque no progression compared to 2020. RCA: This is a dominant vessel, large in caliber, bifurcating into PDA and PLV. The midright coronary artery has a 30% plaque. Left Ventriculogram: Performed in the STEVENS view and revealed inferior apical hypokinesis, ejection fraction is about 40% with 4+ mitral regurgitation Hemodynamics: Pulmonary artery saturation 72%, right atrium 73%, femoral artery 99%. Cardiac output by Mariama 6 L/m and by thermodilution 4.20 L/m. Pulmonary artery systolic pressure 34 with a diastolic of 15 and a mean of 20 mmHg, pulmonary capillary wedge pressure A wave 18 V-wave of 22 with a mean of mercury right ventricle systolic pressure 34 with end-diastolic 8 mmHg. Right atrium A wave of 7 V-wave of 8 with a mean 4 mmHg , LVEDP was 18-20 mmHg, there was no gradient across the aortic valve Conclusion: 1. Calcified coronary arteries 2. Mild to moderate triple-vessel disease with no progression compared to the images obtained in 2020 3. 4+ mitral regurgitation with moderately impaired systolic function 4. Right dominance Recommendations: Is in no progression obstructive CAD. The patient will be further evaluated for the need to undergo intervention on his mitral valve, in the meantime we will continue aggressive coronary risks modifications and treatment. The findings and the recommendations were discussed with the patient and the family and they were in full understanding and agreement. Duration of sedation is 34 minutes.
[2023-06-15 15:44] VITALS: BP 107/69; PULSE 69
== END | disposition home or self-care (01) ==
LOC: CATHCVL 07:37
PROVIDERS: ATTEND Internal Medicine Interventional Cardiology
DX: I34.0 Nonrheumatic mitral (valve) insufficiency (principal); I10 Essential (primary) hypertension; E78.5 Hyperlipidemia, unspecified; I25.5 Ischemic cardiomyopathy; I49.3 Ventricular premature depolarization; G47.33 Obstructive sleep apnea (adult) (pediatric); I25.10 Atherosclerotic heart disease of native coronary artery without angina pectoris; Z79.82 Long term (current) use of aspirin; Z79.899 Other long term (current) drug therapy; Z79.01 Long term (current) use of anticoagulants
CPT/HCPCS: 93312; 93320; 93325; 93460; 80048; 85018; 82810; 85025; C1769 ×2; C1894; C1751; J2250; J2001; J3010; J1644; Q9967

== ENCOUNTER → 2024-06-25 | Outpatient (CLI) | payer MEDICARE ==
--- NOTE | 2024-06-25 08:25 | MR ---
EXAMINATION TYPE: MR brain and iac wo/w con DATE OF EXAM: 06/25/2024 7:54 AM COMPARISON: None. CLINICAL INDICATION: Male, 73 years old with history of H90.A21 sensorineural hearing loss; PHH, Dizz iness, right sided hearing loss, recent head injury. TECHNIQUE: Multi planar, multi sequence imaging was performed through the brain. Specialized thin s equences were obtained through the internal auditory canals. Pre-and post gadolinium sequences were obtained. IV Contrast: 7 mL Gadobutrol FINDINGS: The almeida-white junctions, ventricular system, and cisterns appear unremarkable. Scattered foci of hi gh T2 signal intensity are seen within the periventricular white matter. Midline structures show no a bnormality. Diffusion-weighted imaging shows no evidence of restricted diffusion. The susceptibility weighted images do not reveal any evidence for micro-hemorrhage. The bone marrow signal is within normal limits. Paranasal sinuses and mastoid air cells: Mild scattered paranasal sinus disease. Trace high signal in the right mastoid air cell effusions. Visualized orbits: Orbital contents are intact. After administration of gadolinium, no abnormal enhancement is seen. The internal auditory canal sequences demonstrate no significant irregularity. The 7th cranial nerve s, 8 cranial nerves, and cerebellar pontine angles appear unremarkable. After the administration lucia olinium, no abnormal enhancement is seen within the internal auditory canals. Vascular loop: None. IMPRESSION: 1. No evidence of intracranial mass nor acute/subacute CVA. 2. No evidence of internal auditory canal abnormality. 3. Nonspecific white matter changes, likely secondary to small vessel ischemic disease. 4. Trace right mastoid air cell effusion. [facility], , 06/25/2024 8:22 AM
== END | disposition home or self-care (01) ==
LOC: RADMRIMAIN 06:21
PROVIDERS: ATTEND Otolaryngology
DX: H90.A21 Sensorineural hearing loss, unilateral, right ear, with restricted hearing on the contralateral side (principal); R90.82 White matter disease, unspecified; I67.82 Cerebral ischemia
CPT/HCPCS: 70553; A9585

== ENCOUNTER → 2024-06-26 | Outpatient (CLI) | payer MEDICARE ==
--- NOTE | 2024-06-26 12:21 | FL ---
Exam Date: 06/26/2024 11:48 AM. Modified barium swallow for dysphagia. Consistencies administered: Various consistency of barium. Fluoro time: 1min 2sec fl time No images were sent to PACS. Please see speech pathology report. DAP: not reported mGym2 Gycm2 , ba=thin, nectar, honey and pudding [facility], , 06/26/2024 12:18 PM
== END | disposition home or self-care (01) ==
LOC: RADFLMAIN 11:19
PROVIDERS: ATTEND Otolaryngology
DX: R13.13 Dysphagia, pharyngeal phase (principal)
CPT/HCPCS: 74230